=== PATIENT | female | born 2000 | race Caucasian/White ===

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

== ENCOUNTER 2022-04-17 12:19 | Emergency (ER) | payer OTHER ==
[~2022-04-17] VITALS: Ht 154.9 cm; Wt 65.3 kg
[2022-04-17 12:34] VITALS: BP 129/78
--- NOTE | 2022-04-17 12:49 | NUR ---
DR KENNEY IN TRIAGE FOR EVAL
--- NOTE | 2022-04-17 13:00 | NUR ---
21 Y/O FEMALE BIBA FROM HOME S/P PANIC ATTACK, STATES THAT SHE'S HAVING A HARD TIME AT HOME. DENIES ANY SI NKA PMH: DENIES
--- NOTE | 2022-04-17 13:04 | NUR ---
ATTEMPTED TO LOCATE PT FOR EKG BUT NO ANSWER.
--- NOTE | 2022-04-17 13:08 | NUR ---
PT AND FATHER NOT IN LOBBY
[2022-04-17 13:32] LABS: BASOPHILS % (AUTO) 0.2 % (0.0-2.0); EOSINOPHILS % (AUTO) 0.4 % (0.0-4.0); HEMATOCRIT 39.1 % (36-48); HEMOGLOBIN 13.2 g/dL (12.0-16.0); LYMPHOCYTES # (AUTO) 0.9 K/uL (2.5-16.5); LYMPHOCYTES % (AUTO) 10.6 % (20.5-51.1); MEAN CORPUSCULAR HEMOGLOBIN 32 pg (27-31); MEAN CORPUSCULAR HGB CONC 34 g/dL (33-37); MEAN CORPUSCULAR VOLUME 94.6 fL (80-94); MONOCYTES # (AUTO) 0.4 K/uL (0.8-1.0); MONOCYTES % (AUTO) 4.3 % (1.7-9.3); NEUTROPHILS # (AUTO) 7.6 K/uL (1.8-7.7); NEUTROPHILS % (AUTO) 84.5 % (42.2-75.2); PLATELET COUNT (AUTO) 145 K/uL (140-450); RED BLOOD CELL COUNT(AUTO) 4.13 MIL/uL (4.20-5.40); RED CELL DISTRIBUTION WIDTH 12.8 % (11.6-13.7); WHITE BLOOD COUNT (AUTO) 8.9 K/uL (4.5-11.0)
[2022-04-17 13:57] LABS: ALBUMIN 3.8 g/dL (3.4-5.0); ANION GAP 8.9 (8-16); CREATININE 0.8 mg/dL (0.6-1.3); POTASSIUM 3.9 mmol/L (3.5-5.1); THYROID STIMULATING HORMONE 0.42 uIU/mL (0.34-3.74); TOTAL BILIRUBIN 0.6 mg/dL (0.0-1.0)
[2022-04-17] MEDS ORDERED: CEPH-588 PO (14:35)
== END 2022-04-17 14:44 | disposition home or self-care (01) ==
LOC: MED 12:19
DX: R55 Syncope and collapse (principal); N39.0 Urinary tract infection, site not specified; R42 Dizziness and giddiness; R11.0 Nausea; F41.8 Other specified anxiety disorders; Z79.899 Other long term (current) drug therapy
CPT/HCPCS: 36415; 80053; 81002; 81025; 84443; 85025; 93005; 99284

== ENCOUNTER 2023-01-25 02:46 | Emergency (ER) | payer OTHER ==
[~2023-01-25] VITALS: Ht 154.9 cm; Wt 63.5 kg
[~2023-01-25 02:46] MED LIST changes: +CEPH-588 PO
[2023-01-25 02:55] VITALS: BP 115/64
--- NOTE | 2023-01-25 03:02 | NUR ---
TO LOBBY FOLLOWING TRIAGE AFTER OBTAINING UA
[2023-01-25 03:18] LABS: APPEARANCE,URINE CLOUDY (CLEAR); BILIRUBIN,URINE NEGATIVE (NEGATIVE); BLOOD, URINE 3+ (NEGATIVE); COLOR,URINE YELLOW (YELLOW); LEUKOCYTE ESTERASE ,URINE 2+ (NEGATIVE); NITRITE, URINE NEGATIVE (NEGATIVE); UGLUCOSE NEGATIVE (NEGATIVE)
[2023-01-25 03:27] LABS: RBC,URINE TOO NUMEROUS TO COUN /HPF (0-5)
[2023-01-25] MEDS ORDERED: KETOROLAC 60 MG/2 ML VIAL IM ONE (03:50)
[2023-01-25] MEDS ORDERED: cefTRIAXone 1,000 MG in LIDOCAINE MPF 1% 2.1 ML IM ONE (03:50)
[2023-01-25] MEDS ORDERED: LIDOCAINE MPF 1% 5 ML ONE (03:58)
[2023-01-25] MEDS ORDERED: cefTRIAXone 1,000 MG VIAL ONE (03:58)
[2023-01-25] MEDS ORDERED: NITR100C7 PO (04:15)
[2023-01-25] MEDS ORDERED: PHEN-1877 PO (04:15)
[2023-01-25 04:20] VITALS: BP 115/64
--- NOTE | 2023-01-25 04:20 | NUR ---
Patient discharged with v/s stable. Written and verbal after care instructions given and explained. Patient alert, oriented and verbalized understanding of instructions. Ambulatory with steady gait. All questions addressed prior to discharge. ID band removed. Patient advised to follow up with PMD. Rx of MACROBID AND PYRIDIUM given. Patient educated on indication of medication including possible reaction and side effects. Opportunity to ask questions provided and answered.
== END 2023-01-25 04:20 | disposition home or self-care (01) ==
LOC: MED 02:46
DX: N39.0 Urinary tract infection, site not specified (principal); Z79.899 Other long term (current) drug therapy
CPT/HCPCS: 81001; 81025; 87086; 96372; 99284; J0696; J1885; J2001

== ENCOUNTER 2023-02-28 00:50 | Emergency (ER) | payer OTHER ==
[~2023-02-28] VITALS: Ht 154.9 cm; Wt 62.6 kg
[~2023-02-28 00:50] MED LIST changes: +NITR100C7 PO; +PHEN-1877 PO
[2023-02-28 01:01] VITALS: BP 128/73; PULSE 56; RESP 20; TEMP 98; O2SAT 98
--- NOTE | 2023-02-28 01:10 | NUR ---
PT WENT TO BACK TO YOUR LOBBY
--- NOTE | 2023-02-28 03:01 | NUR ---
22 YO F BIB SELF C/O BURNING WHEN URINATING AND FREQUENCY STARTING ABOUT 5 HOURS AGO. +HEMATURIA. + URINARY FREQUENCY. PT STATES HX OR UTI. AXO4. CALL LIGHT WITHIN REACH. NKDA NO MED HX
[2023-02-28 03:20] VITALS: O2SAT 98
[2023-02-28 03:54] LABS: APPEARANCE,URINE CLOUDY (CLEAR); BILIRUBIN,URINE NEGATIVE (NEGATIVE); BLOOD, URINE 3+ (NEGATIVE); COLOR,URINE RED (YELLOW); LEUKOCYTE ESTERASE ,URINE 3+ (NEGATIVE); NITRITE, URINE NEGATIVE (NEGATIVE); PH,URINE 6.5 (5.0-9.0); UGLUCOSE NEGATIVE (NEGATIVE)
[2023-02-28 04:00] LABS: RBC,URINE TOO NUMEROUS TO COUN /HPF (0-5)
[2023-02-28] MEDS ORDERED: PHENAZOPYRIDINE 100 MG TAB PO ONE (05:15)
[2023-02-28] MEDS ORDERED: PYR100 PO (05:18)
[2023-02-28] MEDS ORDERED: NAPR-1704 PO (05:18)
[2023-02-28] MEDS ORDERED: CEPH-588 PO (05:18)
--- NOTE | 2023-02-28 05:24 | NUR ---
Patient discharged with v/s stable. Written and verbal after care instructions given and explained. Patient verbalized understanding. Ambulatory with steady gait. All questions addressed prior to discharge. Advised to follow up with PMD.
== END 2023-02-28 05:29 | disposition home or self-care (01) ==
LOC: MED 00:50
DX: N39.0 Urinary tract infection, site not specified (principal); Z79.899 Other long term (current) drug therapy
CPT/HCPCS: 81001; 81025; 87086; 99283

== ENCOUNTER 2023-03-27 04:55 | Emergency (ER) | payer OTHER ==
[~2023-03-27 04:55] MED LIST changes: +NAPR-1704 PO; +PYR100 PO
--- NOTE | 2023-03-27 05:16 | NUR ---
Cornelio boyer in [facility] - 03/27/[address] at [address] Zarate examining patient.
--- NOTE | 2023-03-27 05:18 | NUR ---
PATIENT ELOPED FROM FACILITY. DISCHARGE INSTRUCTIONS NOT GIVEN TO PATIENT. DR. Zarate NOTIFIED.
--- NOTE | 2023-03-27 05:18 | NUR ---
pt left prior to triage, stating that she doesnt want to be seen and examined, refusing blood draw and vs taking
--- NOTE | 2023-03-27 05:50 | NUR ---
Cornelio boyer in ED - 03/27/23 at 0550 by ALLA PATIENT ELOPED FROM FACILITY. DISCHARGE INSTRUCTIONS NOT GIVEN TO PATIENT. DR. Zarate NOTIFIED.
== END 2023-03-27 05:18 | disposition left against medical advice (07) ==
LOC: MED 04:55
DX: R20.0 Anesthesia of skin (principal); Z53.21 Procedure and treatment not carried out due to patient leaving prior to being seen by health care provider